=== PATIENT | male | born 1940 | race Caucasian/White ===

== ENCOUNTER 2017-10-05 10:32 | Outpatient (CLI) | payer BC, MEDICARE | END 2017-10-05 10:33 | disposition home or self-care (01) | LOC: BICULT 10:32 | PROVIDERS: ATTEND Urology | DX: N40.1 Benign prostatic hyperplasia with lower urinary tract symptoms (principal) | CPT/HCPCS: 76770 ==

== ENCOUNTER 2018-05-05 13:33 | Inpatient (IN) | payer BC, MEDICARE ==
[~2018-05-05 13:33] MED LIST: Iopamidol 370 76% 100 ML VIAL ONE; Iopamidol 370 76% 50 ML VIAL FS ONE
[2018-05-05 13:55] LABS: #Eosinphils 0.1 thou/uL (0.0-0.7); #Lymphocytes 2.4 thou/uL (1.20-3.40); #Monocytes 0.7 thou/uL (0.11-0.59); #Neutrophils 5.9 thou/uL (1.40-6.50); %Basophils 0.4 % (0.0-1.0); %Eosinophils 1.3 % (0.0-10.0); %Lymphocytes 25.8 % (21.0-51.0); %Monocytes 7.8 % (0.0-10.0); %Neutrophils 64.8 % (42.0-75.0); Hemoglobin 11.7 g/dL (14.0-18.0); Mean Corpuscular HGB CONC 31.4 g/dL (32.0-36.0); Mean Corpuscular Hemoglobin 29.4 pg (27.0-31.0); Mean Corpuscular Volume 93.7 fL (78.0-98.0); Mean Platelet Volume 6.4 fL (7.4-10.4); Platelet Count 361 thou/uL (130-400); RBC Distribution Width 13.4 % (11.5-14.5); Red Blood Cell (RBC) Count 3.99 mill/uL (4.70-6.10); White Blood Cell (WBC) Count 9.2 thou/uL (4.8-10.8)
[2018-05-05 13:58] LABS: INR-International Normal Ratio 1.1; Prothrombin Time 13.9 SEC (12.0-14.7)
[2018-05-05 13:59] LABS: PTT 27.3 SEC (22.9-36.1)
--- NOTE | 2018-05-05 14:02 | RAD ---
UPRIGHT PORTABLE CHEST ONE VIEW: HISTORY: A 78-year-old male with a history of chest pain. STEMI alert. FINDINGS: Minimal increased linear and interstitial markings bilaterally with some biapical pleural thickening and some stable scarring in the right upper lobe. No confluent pneumonia, overt edema, or pleural ef fusion. IMPRESSION: Overall stable increased markings bilaterally with some scarring in the right upper lobe. No conflue nt pneumonia, overt edema, pleural effusion, or other acute process. POS: OFF
[2018-05-05] MEDS ORDERED: Lidocaine 1% (PF) 30 ML VIAL ONE (14:07)
[2018-05-05] MEDS ORDERED: Heparin 10,000 UNITS/1 ML VIAL ONE (14:11)
[2018-05-05] MEDS ORDERED: Adenosine 6 MG/2 ML VIAL ONE (14:11)
[2018-05-05] MEDS ORDERED: Nitroglycerin 100MG/250ML BOT 250 ML ONE (14:11)
[2018-05-05 14:14] LABS: ALT (SGPT) 9 U/L (8-55); AST (SGOT) 16 U/L (5-34); Albumin 4.3 g/dL (3.4-4.8); Alkaline Phosphatase 105 U/L (40-150); Anion Gap 17 mmol/L (10-20); BUN (Urea Nitrogen) 22 mg/dL (8.4-25.7); Bilirubin, Total 0.3 mg/dL (0.2-1.2); CK (CPK) 128 U/L (30-200); Calc. Creatinine Clearance 0 mL/min (70-130); Calcium 9.7 mg/dL (7.8-10.44); Carbon Dioxide 22 mmol/L (23-31); Chloride 103 mmol/L (98-107); Estimated GFR-MDRD 53; Glucose 107 mg/dL (83-110); Lipase 25 U/L (8-78); Potassium 3.6 mmol/L (3.5-5.1); Protein, Total 8.3 g/dL (5.8-8.1); Sodium 138 mmol/L (136-145)
[2018-05-05] MEDS ORDERED: Verapamil 5 MG/2 ML VIAL ONE (14:15)
[2018-05-05 14:17] LABS: CKMB 2.2 ng/mL (0-6.6); Troponin I Less than 0.010 ng/mL (< 0.028)
[2018-05-05] MEDS ORDERED: Midazolam HCl 2 mg/2 ml Vial ONE (14:49)
[2018-05-05] MEDS ORDERED: Atropine Sulfate 1 mg/1 ml Vial ONE (14:49)
[2018-05-05] MEDS ORDERED: Fentanyl 100 MCG/2 ML VIAL ONE (14:49)
[2018-05-05] MEDS ORDERED: DOPamine 400 MG/D5W 250 ML 250 ML ONE (15:20)
[2018-05-05] MEDS ORDERED: Ondansetron HCl/PF 4 MG/2 ML Vial ONE (15:20)
[2018-05-05] MEDS ORDERED: traMADol HCl 50 MG TAB PO PRN (15:28)
[2018-05-05] MEDS ORDERED: Mag-Al 1200 mg/1200 mg/30 ML UDCUP PO PRN (15:28)
[2018-05-05] MEDS ORDERED: Acetaminophen/Codeine 30-300mg Tablet PO PRN (15:28)
[2018-05-05] MEDS ORDERED: Zolpidem Tartrate 5 MG TAB PO PRN (15:28)
[2018-05-05] MEDS ORDERED: Milk Of Magnesia 30 ML UDCUP PO PRN (15:28)
[2018-05-05] MEDS: Sodium Chloride 0.9% 1,000 ML IV SCH (17:04)
[2018-05-05] MEDS ORDERED: Heparin 25,000 units/D5W 500 ML IV SCH (17:45)
[2018-05-05] MEDS ORDERED: Heparin 10,000 UNITS/ 10 ML VIAL SLOW IVP SCH (17:45)
[2018-05-05] MEDS ORDERED: DOBUTamine 500 mg/250 ml 500 MG in Premix Bag 1 BAG IVPB SCH (18:15)
[2018-05-05] MEDS ORDERED: DOPamine 400 MG/D5W 250 ML 250 ML IVPB SCH (18:15)
[2018-05-05] MEDS ORDERED: Heparin 10,000 UNITS/ 10 ML VIAL ONE (20:00)
[2018-05-05] MEDS: cloNIDine 0.1 MG TAB PO PRN (23:07)
[2018-05-06] MEDS: Sodium Chloride 0.9% 1,000 ML IV SCH (04:00)
[2018-05-06 05:08] VITALS: BMI 23.2
[2018-05-06 05:17] LABS: #Eosinphils 0.1 thou/uL (0.0-0.7); #Lymphocytes 1.1 thou/uL (1.20-3.40); #Monocytes 0.7 thou/uL (0.11-0.59); #Neutrophils 8.3 thou/uL (1.40-6.50); %Basophils 0.5 % (0.0-1.0); %Eosinophils 0.6 % (0.0-10.0); %Lymphocytes 10.5 % (21.0-51.0); %Monocytes 6.9 % (0.0-10.0); %Neutrophils 81.6 % (42.0-75.0); Hemoglobin 9.7 g/dL (14.0-18.0); Mean Corpuscular HGB CONC 33.5 g/dL (32.0-36.0); Mean Corpuscular Hemoglobin 31.5 pg (27.0-31.0); Mean Corpuscular Volume 94.2 fL (78.0-98.0); Mean Platelet Volume 6.4 fL (7.4-10.4); Platelet Count 302 thou/uL (130-400); RBC Distribution Width 13.2 % (11.5-14.5); Red Blood Cell (RBC) Count 3.08 mill/uL (4.70-6.10); White Blood Cell (WBC) Count 10.2 thou/uL (4.8-10.8)
[2018-05-06 05:36] LABS: ALT (SGPT) 12 U/L (8-55); AST (SGOT) 67 U/L (5-34); Albumin 3.6 g/dL (3.4-4.8); Alkaline Phosphatase 87 U/L (40-150); Anion Gap 10 mmol/L (10-20); BUN (Urea Nitrogen) 16 mg/dL (8.4-25.7); Bilirubin, Total 0.4 mg/dL (0.2-1.2); Calc. Creatinine Clearance 60 mL/min (70-130); Calcium 8.4 mg/dL (7.8-10.44); Carbon Dioxide 24 mmol/L (23-31); Chloride 107 mmol/L (98-107); Estimated GFR-MDRD 82; Globulin 3.2 g/dL (2.4-3.5); Glucose 104 mg/dL (83-110); Potassium 3.9 mmol/L (3.5-5.1); Protein, Total 6.8 g/dL (5.8-8.1); Sodium 137 mmol/L (136-145)
[2018-05-06] MEDS: Clopidogrel Bisulfate 75 MG TAB PO SCH (09:08)
[2018-05-06] MEDS: cloNIDine 0.1 MG TAB PO PRN (11:46)
--- NOTE | 2018-05-06 12:41 | HP ---
CHIEF COMPLAINT: Acute myocardial infarction. HISTORY OF PRESENT ILLNESS: Mr. Rush is a pleasant 70-year-old gentleman with previous history o f tobacco abuse and hypertension who recently presented with chest pressure. He had associated nause a and vomiting. This began the night prior to presentation. He did have radiation to his jaw and le ft arm. He presented to emergency room with ST segment elevation. PAST MEDICAL HISTORY: COPD, BPH, hypertension, tobacco abuse. HOME MEDICATIONS: Include Meloxicam, sertraline, indomethacin, clonidine, levothyroxine, amlodipine, tamsulosin, alprazolam, doxepin, [place], gabapentin. ALLERGIES: CODEINE. REVIEW OF SYSTEMS: Ten point review of systems reviewed and as above, otherwise negative. PHYSICAL EXAMINATION: VITAL SIGNS: Blood pressure 130/74, pulse 80, respirations 20. GENERAL: Patient is currently having active chest pain. NEUROLOGIC: The patient is alert and oriented times 3 with no focal neurologic deficits. HEENT: Sclerae without icterus. Mouth has moist mucous membranes with normal pallor. NECK: No JVD. Carotid upstroke brisk. No bruits bilaterally. LUNGS: Clear to auscultation with unlabored respirations. BACK: No scoliosis or kyphosis. CARDIAC: Regular rate and rhythm with normal S1 and S2. No S3 or S4 noted. No significant rubs, mur murs, thrills, or gallops noted throughout the precordium. PMI is not displaced. There is no parast ernal heave. ABDOMEN: Soft, nontender, nondistended. No peritoneal signs present. No hepatosplenomegaly. No abn ormal striae. EXTREMITIES: 2+ femoral and 2+ dorsalis pedis pulses. No cyanosis, clubbing, or edema. SKIN: No gross abnormalities. EKG shows sinus rhythm with ST segment elevation noted inferiorly suggesting inferior myocardial infa rction. LABS: Pending. IMPRESSION: Acute myocardial infarction. RECOMMENDATIONS: I would recommend urgent coronary angiography plus PCI. I discussed the procedure in detail with Mr. Rush. The risks included, but not limited to the following: , stroke, M I, need for emergency surgery, loss of limb, bleeding, and infection, as well as a reaction to the dy e causing kidney failure and needing long-term dialysis. I also discussed the risks of PCI to includ e all of the above including coronary dissection and perforation in addition to acute stent thrombosi s and restenosis. All questions about the procedure were answered. Given the above, the patient agr eed to proceed with coronary angiography and possible PCI. I also discussed drug-coated versus nondrug coated stent placement. There is no contraindication, we will proceed if needed. Further recommendation pending the above.
--- NOTE | 2018-05-06 12:41 | CON ---
DATE OF CONSULTATION: 05/06/2018 HISTORY OF PRESENT ILLNESS: Mr. Farmer is doing well. No chest pain or pressure noted. PHYSICAL EXAMINATION: VITAL SIGNS: Blood pressure 157/105, pulse 72, temperature is afebrile. NEUROLOGIC: The patient is alert and oriented times 3 with no focal neurologic deficits. HEENT: Sclerae without icterus. Mouth has moist mucous membranes with normal pallor. NECK: No JVD. Carotid upstroke brisk. No bruits bilaterally. LUNGS: Clear to auscultation with unlabored respirations. BACK: No scoliosis or kyphosis. CARDIAC: Regular rate and rhythm with normal S1 and S2. No S3 or S4 noted. No significant rubs, murmurs, thrills, or gallops noted throughout the precordium. PMI is not displaced. There is no parasternal heave. ABDOMEN: Soft, nontender, nondistended. No peritoneal signs present. No hepatosplenomegaly. No abnormal striae. EXTREMITIES: 2+ femoral and 2+ dorsalis pedis pulses. No cyanosis, clubbing, or edema. SKIN: No gross abnormalities. PERTINENT LABORATORY DATA: Hemoglobin 9.7, creatinine 0.9. IMPRESSION: 1. Acute myocardial infarction. 2. Tobacco abuse. RECOMMENDATIONS: 1. We will add Coreg in addition to Benicar. 2. Transfer patient to telemetry monitoring. 3. Cessation of all tobacco products were discussed.
[2018-05-06] MEDS ORDERED: Senokot 8.6 MG TAB PO PRN (20:28)
[2018-05-06] MEDS ORDERED: ALPRAZolam 0.5 MG TAB PO SCH (20:30)
[2018-05-06] MEDS ORDERED: Sodium Chloride 0.9% 10 ML ONE (20:42)
[2018-05-06] MEDS: Carvedilol 3.125 MG TAB PO SCH (20:50)
[2018-05-06] MEDS ORDERED: Prevnar 13-Val Conj/PF 0.5 ML SYRINGE IM ONE (21:00)
[2018-05-07] MEDS ORDERED: ALPRAZolam 0.5 MG TAB PO SCH (09:00)
[2018-05-07] MEDS: Clopidogrel Bisulfate 75 MG TAB PO SCH (09:06)
[2018-05-07] MEDS: Carvedilol 3.125 MG TAB PO SCH (09:06)
--- NOTE | 2018-05-07 09:09 | DIS ---
DATE OF ADMISSION: 05/05/2018 DATE OF DISCHARGE: 05/07/2018 DISCHARGE DIAGNOSIS: Acute myocardial infarction. HOSPITAL COURSE: Mr. Rush is a pleasant 70-year-old gentleman who recently suffered an acute [place] cardial infarction. He had ST segment elevation noted inferiorly. He underwent urgent coronary javier ography with PCI. The procedure itself was very difficult. He had significant tortuosity present wi th the mid right coronary artery in addition to a 360 degree loop present within the distal right cor onary artery. The lesion was distal to the stented region. Stent placement was again successfully placed as described above. He was placed in the ICU in stable condition. He did well during his hospitalization. He was ambulatory on day of discharge. I did c ounsel him on cessation of all tobacco products. DISCHARGE MEDICATIONS: Aspirin 81 q.a.m., atorvastatin 80 at bedtime, carvedilol 3.125 b.i.d., Plavi x 75 daily., pantoprazole 40 at bedtime, hydrocodone p.r.n., Flomax 0.4 daily, sertraline 100 mg b.i. d., Synthroid 200 mcg daily, alprazolam 0.5 daily, gabapentin 200 b.i.d., Avodart 0.5 daily, Cardura 0.4 mg daily. CONDITION ON DISCHARGE: Stable. FOLLOWUP: Follow up with Jennifer Patel in 1 week.
[2018-05-07 09:45] VITALS: BP 132/84; TEMP 98.6
[2018-05-07 09:48] LABS: Cardiac Risk 4.1 (Less than 4.5)
[2018-05-07] MEDS ORDERED: Atorvastatin Calcium 40 MG TAB PO SCH (21:00)
--- NOTE | 2018-05-10 08:28 | EKG ---
Test Reason : Blood Pressure : / mmHG Vent. Rate : 087 BPM Atrial Rate : 087 BPM P-R Int : 140 ms QRS Dur : 080 ms QT Int : 392 ms P-R-T Axes : 000 067 078 degrees QTc Int : 471 ms Normal sinus rhythm Left ventricular hypertrophy with repolarization abnormality ST elevation consider inferior injury or acute infarct ACUTE PR / STEMI Consider right ventricular involvement in acute inferior infarct Abnormal ECG Confirmed by DR. Lazara BELLO ([id number]) on 05/10/2018 8:28:03 AM Referred By: Confirmed By:DR. Lazara BELLO
--- NOTE | 2018-05-10 08:29 | EKG ---
Test Reason : Blood Pressure : / mmHG Vent. Rate : 067 BPM Atrial Rate : 067 BPM P-R Int : 158 ms QRS Dur : 084 ms QT Int : 444 ms P-R-T Axes : 071 003 -13 degrees QTc Int : 469 ms Normal sinus rhythm Moderate voltage criteria for LVH, may be normal variant Abnormal ECG When compared with ECG of 05-MAY-2018 16:10, (Unconfirmed) Questionable change in QRS axis ST less elevated in Inferior leads ST no longer depressed in Anterior leads T wave inversion now evident in Inferior leads Confirmed by DR. Lazara BELLO ([id number]) on 05/10/2018 8:28:56 AM Referred By: SARA Confirmed By:DR. Lazara BELLO
== END 2018-05-07 11:28 | disposition home or self-care (01) | DRG 247 ==
LOC: ERS 13:33 → CCL 14:00 → CCU 14:22 → 2NO 05-06 12:20
PROVIDERS: ADMIT Internal Medicine Cardiovascular Disease; ATTEND Internal Medicine Cardiovascular Disease
PROC: 027035Z Dilation of Coronary Artery, One Artery with Two Drug-eluting Intraluminal Devices, Percutaneous Approach (ICD-10-PCS; principal; 2018-05-05)
PROC: 02C03ZZ Extirpation of Matter from Coronary Artery, One Artery, Percutaneous Approach (ICD-10-PCS; 2018-05-05)
PROC: 4A023N7 Measurement of Cardiac Sampling and Pressure, Left Heart, Percutaneous Approach (ICD-10-PCS; 2018-05-05)
PROC: B2111ZZ Fluoroscopy of Multiple Coronary Arteries using Low Osmolar Contrast (ICD-10-PCS; 2018-05-05)
DX: I21.19 ST elevation (STEMI) myocardial infarction involving other coronary artery of inferior wall (principal); I25.110 Atherosclerotic heart disease of native coronary artery with unstable angina pectoris; I10 Essential (primary) hypertension; J44.9 Chronic obstructive pulmonary disease, unspecified; F17.210 Nicotine dependence, cigarettes, uncomplicated
CPT/HCPCS: 36415; 71045; 76942; 80053; 80061; 82553; 83690; 84484; 85025; 85347; 85610; 85730; 86850; 86900; 86901; 92941; 93005; 93010; 93306; 93454; 93798; 94760; 99152; 99153; A4216; C1725; C1757; C1769; C1874; C1887; C9606; J0153; J0461; J1265; J1644; J2001; J2250; J2270; J2405; J3010